=== PATIENT | male | born 1985 | race Caucasian/White ===

== ENCOUNTER 2025-07-07 07:45 | Emergency (ER) | payer OTHER, SELFPAY ==
[2025-07-07 07:50] VITALS: BP 179/97; PULSE 107; TEMP 36.6; O2SAT 99; BMI 27.3
--- NOTE | 2025-07-07 07:58 | CT_ITS ---
The [address] [address] Patient Name: ANAI TOBAR MRN: [id number] date: 1985 Sex: M Assigned Patient Location: ER Current Patient Location: ER Accession/Order Number: [id number] Exam Date: 07/07/2025 08:10 Report Date: 07/07/2025 08:37 At the request of: SANDRA NEAL MD Procedure: CT abdomen pelvis wo con CT ABDOMEN AND PELVIS WITHOUT CONTRAST COMPARISON: None CLINICAL DATA: Left flank pain. History of kidney stones. Spiral images were obtained through the abdomen and pelvis without contrast. This CT exam was performed using one or more following dose reduction techniques: Automated exposure control, adjustment of the mA and/or kV according to patient size, or use of iterative reconstruction technique. Limited cuts through the lung bases show a 7 mm nodular density within the right lower lobe adjacent to the dome of the diaphragm. Evaluation of the intra-abdominal organs is slightly limited by the absence of contrast. No calcified gallstones are identified. Fatty infiltration of the liver is present with focal fatty sparing near the gallbladder fossa. There are calcified splenic granulomas. The pancreas and adrenal glands show no acute findings. There is postoperative change at the lower pole of the right kidney. Multiple small bilateral renal stones are present, largest measuring 4 - 5 mm in size on the left. There is a subtle hypodensity at the superior pole the left kidney that cannot be fully evaluated on this unenhanced study. It might be a cyst. No hydronephrosis is noted on the right. On the left, there is mild hydronephrosis secondary to a UPJ stone measuring 4 mm in size. The abdominal aorta is normal caliber. There are retroperitoneal and mesenteric lymph nodes. No ascites is seen. There is a tiny umbilical hernia containing fat. There is moderate fluid and food debris within the stomach. There are normal caliber small bowel loops. There is stool within the right colon. The left colon is not as well distended. Subtle levoscoliotic curvature and minor degenerative changes are seen at the spine, predominantly at the lumbosacral junction. Images through the pelvis show normal caliber small bowel. The appendix is not definitely seen. There is mild rectosigmoid stool. No diverticular disease is noted. The prostate is borderline prominent. There are no urinary bladder abnormalities for the degree of distention. No ascites is seen. CT/CT abdomen pelvis wo con IMPRESSION: INCIDENTAL NODULAR DENSITY AT THE RIGHT LUNG BASE. FATTY LIVER. POSTOPERATIVE CHANGES AT THE RIGHT KIDNEY. POSSIBLE LEFT RENAL CYST. BILATERAL NEPHROLITHIASIS. PARTIALLY OBSTRUCTING LEFT URETEROPELVIC JUNCTION STONE. Impression dictated by: Domi Chin M.D. 07/07/2025 8:37 AM Dictation Location: [place] [address] Electronically authenticated by: [id number] Y Date: 07/07/2025 08:37
--- NOTE | 2025-07-07 07:59 | ED.GENADUL1 ---
HPI HPI - General Adult General Chief complaint: Abdominal Pain Stated complaint: KIDNEY PAIN Time Seen by Provider: 07/07/25 07:56 Source: patient Mode of arrival: walk-in Limitations: no limitations History of Present Illness HPI narrative: 40-year-old male presented to the emergency department for left flank pain. It started 30 minutes ago and has been continuous. He has had kidney stones in the past and feels the same. No gross hematuria or fever. He is not nauseous. Related Data Previous Rx's ?Medication ?Instructions ?Recorded ibuprofen 800 mg tablet 800 mg PO Q8H PRN pain #20 tabs 07/07/25 ondansetron 4 mg disintegrating 4 mg PO Q6H PRN nausea and 07/07/25 tablet vomiting #20 tabs oxycodone-acetaminophen 5 mg-325 1 tab PO Q6H PRN pain 5 days #20 07/07/25 mg tablet (Percocet) tabs tamsulosin 0.4 mg capsule (Flomax) 0.4 mg PO DAILY #7 caps 07/07/25 Allergies Allergy/AdvReac Type Severity Reaction Status Date / Time No Known Drug Allergies Allergy Verified 07/07/25 07:50 Opioid HPI Opioid Management Most Recent Opioid Data: Last Pain Scale 6 Today, 10:38 Last MAR Pain Assessment Today, 10:38 Review of Systems ROS Narrative A ten point review of systems is negative except as noted above. PFSH PFSH Social History Little interest or pleasure in doing things: not at all Feeling down, depressed, or hopeless: not at all Exam Narrative Exam Narrative: Nurses note and vital signs reviewed General:The patient appears uncomfortable. Skin:Warm, dry, no pallor noted.There is no rash noted. Head:Normocephalic, atraumatic Eye: Normal conjunctiva, no drainage Ears, Nose, Mouth, and Throat: oral mucosa is moist. Nares patent. Cardiovascular:Regular Rate and Rhythm, mildly tachycardic Respiratory:Patient is in no distress, no accessory muscle use, lungs are clear to auscultation, no wheezing, rales or rhonchi Back:non-tender, no CVA tenderness bilaterally to percussion. GI: Soft and nontender Musculoskeletal: The patient has no evidence of calf tenderness, no pitting edema, symmetrical pulses noted bilaterally Neurological:A&O normal speech Psychiatric:Cooperative Constitutional Vital Signs, click to edit/add: Last Vital Signs Temp 97.9 F 07/07/25 07:50 Pulse 107 H 07/07/25 07:50 Resp 20 07/07/25 07:50 BP 152/99 H 07/07/25 10:03 Pulse Ox 99 07/07/25 07:50 O2 Del Method Room Air 07/07/25 07:50 Course Vital Signs Vital signs: Vital Signs Temperature 97.9 F 07/07/25 07:50 Pulse Rate 107 H 07/07/25 07:50 Respiratory Rate 20 07/07/25 07:50 Blood Pressure 179/97 H 07/07/25 07:50 Pulse Oximetry 99 07/07/25 07:50 Oxygen Delivery Method Room Air 07/07/25 07:50 Temperature 97.9 F 07/07/25 07:50 Pulse Rate 107 H 07/07/25 07:50 Respiratory Rate 20 07/07/25 07:50 Blood Pressure 152/99 H 07/07/25 10:03 Pulse Oximetry 99 07/07/25 07:50 Oxygen Delivery Method Room Air 07/07/25 07:50 Medical Decision Making MDM Narrative Medical decision making narrative: 4 mm left proximal ureteral stone is identified. He was given IV morphine and Zofran and Toradol here and ultimately is able to be discharged home. He was prescribed Percocet, ibuprofen, Flomax, and Zofran. Treatment diagnosis and follow-up were discussed with the patient. Differential Diagnosis Differential Diagnosis: Kidney stone, UTI Lab Data Lab results reviewed: Yes I reviewed the patient's lab results Labs: Lab Results 07/07/25 07/07/25 Range/Units 07:51 09:01 WBC 10.4 (4.0-11.0) 10^3/uL RBC 5.21 (4.70-6.10) 10^6/uL Hgb 15.6 (14.0-18.0) g/dL Hct 45.8 (42.0-54.0) % MCV 87.9 (80.0-94.0) fL MCH 29.9 (25.9-34.0) pg MCHC 34.1 (29.9-35.2) g/dL RDW 12.9 (11.0-15.0) % Plt Count 250 (150-450) 10^3/uL MPV 10.7 (9.5-13.5) fL Neut % (Auto) 43.8 (43.0-75.0) % Lymph % (Auto) 43.1 (20.5-60.0) % [place] % (Auto) 6.9 (1.7-12.0) % Eos % (Auto) 5.2 (0.9-7.0) % Baso % (Auto) 0.8 (0.2-2.0) % Neut # (Auto) 4.6 (1.4-6.5) 10^3/uL Lymph # (Auto) 4.5 H (1.2-3.8) 10^3/uL [place] # (Auto) 0.7 (0.3-0.8) 10^3/uL Eos # (Auto) 0.5 (0.0-0.7) 10^3/uL Baso # (Auto) 0.1 (0.0-0.1) 10^3/uL Abs Immat Gran (auto) 0.02 (0.00-0.03) 10^3/uL Imm/Tot Granulo (auto) 0.2 (0.0-0.5) % Sodium 142 (136-145) mmol/L Potassium 3.6 (3.5-5.1) mmol/L Chloride 104 (98-107) mmol/L Carbon Dioxide 26.8 (21.0-32.0) mmol/L Anion Gap 14.8 BUN 19.0 H (7.0-18.0) mg/dL Creatinine 1.31 H (0.70-1.30) mg/dL Est GFR ( Amer) >60 (>=60 mL/min/1.73m^2) Est GFR (Non-Af Amer) >60 (>=60 mL/min/1.73m^2) BUN/Creatinine Ratio 14.5 Glucose 130 H (74-106) mg/dL Calcium 9.6 (8.5-10.1) mg/dL Urine Color Yellow (YELLOW) Urine Clarity Clear (CLEAR) Urine pH 5.5 (5.0-9.0) Ur Specific [place] 1.025 (1.005-1.025) Urine Protein Negative (NEG/TRACE) mg/dL Urine Glucose (UA) Negative (NEGATIVE) mg/dL Urine Ketones Negative (NEGATIVE) mg/dL Urine Occult Blood Large A (NEGATIVE) Urine Nitrite Negative (NEGATIVE) Urine Bilirubin Negative (NEGATIVE) Urine Urobilinogen 0.2 (0.2-1.0) EU/dL Ur Leukocyte Esterase Negative (NEGATIVE) Urine RBC 50-75 A (0-2) #/HPF Urine WBC 0-2 A (NONE SEEN) #/HPF Ur Squamous Epith Cells None seen (NONE/RARE) #/LPF Urine Crystals None seen (None Seen) #/HPF Urine Bacteria Moderate A (NONE SEEN) #/HPF Urine Casts None seen (NONE SEEN) #/LPF Urine Mucus Trace A (NONE SEEN) Ur Culture Indicated? [place] [place] scan - abdomen: Radiologist's impression: ITS Impressions Abdomen/Pelvis CT 07/07/25 07:58 IMPRESSION: INCIDENTAL NODULAR DENSITY AT THE RIGHT LUNG BASE. FATTY LIVER. POSTOPERATIVE CHANGES AT THE RIGHT KIDNEY. POSSIBLE LEFT RENAL CYST. BILATERAL NEPHROLITHIASIS. PARTIALLY OBSTRUCTING LEFT URETEROPELVIC JUNCTION STONE. Impression dictated by: Domi Chin M.D. 07/07/2025 8:37 AM Dictation Location: [place] [address] Electronically authenticated by: [id number] Y Date: 07/07/2025 08:37 Discharge Plan Discharge Chief Complaint: Abdominal Pain Clinical Impression: Kidney stone Patient Disposition: Home, Self-Care Time of Disposition Decision: 10:01 Condition: Good Mode of Transportation: Private Vehicle Prescriptions / Home Meds: New ibuprofen 800 mg tablet 800 mg PO Q8H PRN (Reason: pain) Qty: 20 0RF tamsulosin [Flomax] 0.4 mg capsule 0.4 mg PO DAILY Qty: 7 0RF ondansetron 4 mg tablet,disintegrating 4 mg PO Q6H PRN (Reason: nausea and vomiting) Qty: 20 0RF oxycodone-acetaminophen [Percocet] 5-325 mg tablet 1 tab PO Q6H PRN (Reason: pain) 5 Days Qty: 20 0RF Print Language: Croatian Instructions: Kidney Stones (ED), How to Strain Your Urine (ED) Referrals: Kamryn Gray MD [Physician, Urology] CAROLYN GUERRERO [Primary Care Provider, Family Practice] - 1 week
[2025-07-07] MEDS: MORPHINE SULFATE 4 MG/ML VIAL IV (08:06)
[2025-07-07] MEDS: 0.9 % SODIUM CHLORIDE 1,000 ML 1000 ML IV (08:06)
[2025-07-07 08:10] LABS: Hematocrit 45.8 % (42.0-54.0); Hemoglobin 15.6 g/dL (14.0-18.0); Immature Granulocytes Abs Auto 0.02 10^3/uL (0.00-0.03); Immature Granulocytes Pct Auto 0.2 % (0.0-0.5); Lymphocytes Absolute Auto 4.5 10^3/uL (1.2-3.8); Mean Corpuscular HGB Conc 34.1 g/dL (29.9-35.2); Mean Corpuscular Hemoglobin 29.9 pg (25.9-34.0); Mean Corpuscular Volume 87.9 fL (80.0-94.0); Platelet Count 250 10^3/uL (150-450); Red Blood Count 5.21 10^6/uL (4.70-6.10); White Blood Count 10.4 10^3/uL (4.0-11.0)
[2025-07-07 08:15] LABS: Anion Gap 14.8; Blood Urea Nitrogen 19.0 mg/dL (7.0-18.0); Calcium 9.6 mg/dL (8.5-10.1); Carbon Dioxide 26.8 mmol/L (21.0-32.0); Chloride 104 mmol/L (98-107); Estimated GFR (African America >60 (>=60 mL/min/1.73m^2); Estimated GFR (Non-African Ame >60 (>=60 mL/min/1.73m^2); Glucose 130 mg/dL (74-106); Potassium 3.6 mmol/L (3.5-5.1); Sodium 142 mmol/L (136-145)
[2025-07-07] MEDS: KETOROLAC TROMETHAMINE 30 MG/ML VIAL IVP (08:31)
[2025-07-07 08:35] VITALS: BP 149/91
[2025-07-07 10:03] VITALS: BP 152/99
[2025-07-07 10:03] LABS: Glucose Urine UA NEGATIVE (NEGATIVE)
[2025-07-07 10:04] LABS: Cast Seen? NONE SEEN #/LPF (NONE SEEN); Crystals Seen? None Seen #/HPF (None Seen); Urine Culture Indicated YES-FRMC
[2025-07-07] MEDS: MORPHINE SULFATE 2 MG/ML SYRINGE 4 MG IV (10:38)
== END 2025-07-07 11:31 | disposition home or self-care (01) ==
PROVIDERS: Emergency Provider Emergency Medicine; Family Provider Family Medicine; PCP Family Medicine
DX: N20.0 Calculus of kidney (principal); Z87.442 Personal history of urinary calculi
CPT/HCPCS: 36415; 74176; 80048; 81001; 85025; 87086; 96374; 96375; 96376; 99284; J1885; J2270; J2405